=== PATIENT | male | born 1980 | race African-American/Black ===

== ENCOUNTER 2024-03-15 11:07 | Inpatient (IN) ==
[~2024-03-15 11:07] MED LIST: EPINEPHrine SYR 0.1MG/ML 10 ml SYRINGE IV ONE; Norepinephrine IV 1 MG/ML 4 ML VIAL ONE
[2024-03-15] MEDS: Norepinephrine 4 MG/250mL D5W 4,000 MCG/250 ML BAG IV SCH (11:07)
[2024-03-15] MEDS: HYDROmorphone 1 MG/1 ML SYRINGE IV ONE (11:35)
[2024-03-15] MEDS ORDERED: Propofol 10 mg/ml 100 ML BTL 1,000 MG/100 ML BTL ONE (11:45)
[2024-03-15 11:47] LABS: Hematocrit 39.8 % (33-39); Hemoglobin 12.1 g/dL (10.5-13.5); Mean Corpuscular Hemoglobin 30.4 pg (23-30); Mean Corpuscular Hgb Conc 30.4 g/dL (32-37); Mean Corpuscular Volume 100.1 fL (70-86); Mean Platelet Volume 6.9 fL (6.8-11.3); Platelet Count 310 10^3/uL (150-450); Red Blood Count 3.98 10^6/uL (3.70-5.30); Red Cell Distribution Width 12.7 % (12-17); White Blood Count 11.9 10^3/uL (6.0-17.0)
[2024-03-15] MEDS: Midazolam 10 mg/10 ml VIAL 1 mg/ml 10 ml VIAL (10 mg) IV SLOW PU ONE (12:02)
[2024-03-15 12:03] LABS: Resp Rate 20
[2024-03-15 12:04] LABS: Urine Appearance Extra Turbid; Urine Bilirubin Negative (Negative); Urine Blood 1+ (Negative); Urine Color Yellow; Urine Glucose Negative (Negative); Urine Ketones Negative (Negative); Urine Nitrite Negative (Negative); Urine Protein 2+ (>=100 mg/dL) (Negative); Urine Specific Gravity 1.031 (1.002-1.030); Urine Urobilinogen Negative (Negative)
[2024-03-15 12:05] LABS: High Sens Troponin Baseline 8 pg/mL (<20)
[2024-03-15 12:05] LABS: PO2 Arterial 160 mmHg (80-100)
[2024-03-15 12:09] LABS: ABS Eosinophils 0.1 10^3/uL (0.0-0.6); ABS Lymphocytes 7.3 10^3/uL (3.0-13.0); ABS Monocytes 0.9 10^3/uL (0.3-1.9); ABS Neutrophils 3.6 10^3/uL (1.0-8.0); ABS Nucleated RBC 0.02 10^3/ul; Eosinophil % 0.5 %; Lymphocyte % 61.2 %; Nucleated Red Blood Cells % 0.1 %/100WBC (0.0-0.8)
[2024-03-15 12:15] LABS: Urine Bacteria 3+ /HPF (Absent); Urine Red Blood Cell 3+(>10/hpf) /HPF (0-Trace); Urine Sperm Present /HPF (Absent); Urine White Blood Cell 3+(>20/hpf) /HPF (0-Trace)
[2024-03-15 12:16] LABS: PCO2 Arterial 81 mmHg (35-45)
[2024-03-15 12:24] LABS: ALT 41 U/L (7-52); AST 77 U/L (13-39); Albumin 3.4 g/dL (3.2-5.2); Albumin/Globulin Ratio 1.3 (1-3); Alkaline Phosphatase 67 U/L (122-469); Anion Gap 18 mmol/L (2-16); Blood Urea Nitrogen 22 mg/dL (6-24); CO2 Carbon Dioxide 23 mmol/L (23-33); Calcium 9.7 mg/dL (8.6-10.3); Chloride 99 mmol/L (101-111); Creatinine, Serum 1.05 mg/dL (0.67-1.17); Globulin 2.6 g/dL (2-4); Glucose 215 mg/dL (70-100); Magnesium 2.5 mg/dL (1.9-2.7); Potassium 4.4 mmol/L (3.5-5.0); Sodium 140 mmol/L (130-145); Total Bilirubin 0.2 mg/dL (0.2-1.0)
[2024-03-15 12:40] LABS: TSH Ultra Thyroid Stim Horm 5.82 mcIU/mL (0.34-5.60)
[2024-03-15] MEDS: Iodixanol 320 (CONTRAST) 100 ML SDV IV ONE (12:40)
[2024-03-15] MEDS: Propofol 10 mg/ml 100 ML BTL 1,000 MG/100 ML BTL IV SCH ×2 (12:50→17:15)
[2024-03-15 12:53] LABS: High Sensitivity Troponin 1 Hr 16 pg/mL (<20)
[2024-03-15] MEDS ORDERED: Propofol 10 mg/ml 100 ML BTL 1,000 MG/100 ML BTL IV SCH (13:00)
[2024-03-15] MEDS: Meperidine 50 mg/ml SYRINGE 1 ml IV PRN (14:09)
[2024-03-15 14:14] LABS: Alcohol, S < 13 mg/dL (<13); Creatine Kinase 1592 U/L (10-223)
[2024-03-15] MEDS: fentaNYL 100 mcg/2 ml 50 MCG/ML VIAL ONE (14:27)
[2024-03-15] MEDS: Meperidine 50 mg/ml SYRINGE 1 ml ONE (14:28)
[2024-03-15] MEDS: fentaNYL 100 mcg/2 ml 50 MCG/ML VIAL IV SLOW PU PRN (14:28)
[2024-03-15] MEDS: Lactated Ringers 1000 ml BAG 1,000 ML IV ONE ×2 (14:42→16:00)
[2024-03-15] MEDS: Enoxaparin 40 MG/0.4 ML SYR SUBCUT SCH (14:42)
[2024-03-15 14:50] LABS: Free T3 3.89 pg/mL (2.5-3.9)
[2024-03-15 14:51] LABS: Free T4 0.94 ng/dL (0.61-1.12)
[2024-03-15 15:07] LABS: Resp Rate 20
[2024-03-15 15:10] LABS: PO2 Arterial 106 mmHg (80-100)
[2024-03-15 15:12] LABS: PCO2 Arterial 78 mmHg (35-45)
[2024-03-15] MEDS ORDERED: NS 0.9% 1000 ml BAG 1,000 ML IV ONE (15:36)
[2024-03-15 15:52] LABS: Lipase 23 U/L (11.0-82.0)
[2024-03-15] MEDS: fentaNYL INFUSION 50 mcg/mL VL 2,500 MCG/50 ML VIAL IV SCH (15:52)
[2024-03-15] MEDS ORDERED: fentaNYL INFUSION 50 mcg/mL VL 2,500 MCG/50 ML VIAL IV SCH (16:00)
[2024-03-15 16:34] LABS: Activated Partial Thrombo Time 33.2 seconds (26.0-38.0); INR 1.12 (0.85-1.14)
[2024-03-15] MEDS: Chlorhexidine MOUTHWASH 0.12% 15 ML UDC TOPICAL SCH (16:39)
[2024-03-15 16:40] LABS: Urine Benzodiazepine Screen Presumptive Positive (None Detect); Urine Buprenorphine Screen None Detected (None Detect); Urine Cannabinoids Screen Presumptive Positive (None Detect); Urine Fentanyl Screen Presumptive Positive (None Detect); Urine Hydrocodone Screen Presumptive Positive (None Detect); Urine Opiates Screen Presumptive Positive (None Detect)
[2024-03-15 17:21] LABS: C Reactive Protein 7.52 mg/L (<8.01); Cholesterol 108 mg/dL; HDL Cholesterol 34.8 mg/dL; LDL Cholesterol 45 mg/dL; Triglycerides 142 mg/dL
[2024-03-15] MEDS: D5LR 1000 ml BAG 1,000 ML IV SCH (17:51)
[2024-03-15 18:00] LABS: Folate > 20.00 ng/mL (5.90-24.80)
[2024-03-15 18:01] LABS: Vitamin B12 725 pg/mL (180-914)
[2024-03-15] MEDS: Famotidine IV 10 MG/ML 2 ml VIAL (20 mg) IV SLOW PU SCH (22:01)
[2024-03-15] MEDS: Acetaminophen IV 1 GM/100ML 1,000 MG/100 ML BAG IV PRN (22:58)
[2024-03-16 04:31] LABS: Albumin 2.9 g/dL (3.2-5.2); Albumin/Globulin Ratio 1.3 (1-3); Calcium 8.1 mg/dL (8.6-10.3); Creatinine, Serum 1.45 mg/dL (0.67-1.17); Globulin 2.3 g/dL (2-4); Potassium 4.2 mmol/L (3.5-5.0); Total Bilirubin 0.4 mg/dL (0.2-1.0); Total Protein 5.2 g/dL (6.4-8.9)
[2024-03-16 04:37] LABS: Hematocrit 40.1 % (38-53); Hemoglobin 13.3 g/dL (13.2-16.3); Mean Corpuscular Hemoglobin 31.6 pg (27-33); Mean Corpuscular Hgb Conc 33.3 g/dL (31-36); Mean Corpuscular Volume 95.1 fL (80-97); Red Blood Count 4.22 10^6/uL (4.06-5.63); Red Cell Distribution Width 12.5 % (12-17)
[2024-03-16 05:18] LABS: ABS Lymphocytes 0.4 10^3/uL (1.0-4.8); ABS Monocytes 0.1 10^3/uL (0.0-1.1); ABS Neutrophils 7.5 10^3/uL (1.5-7.6); ABS Nucleated RBC 0.01 10^3/ul; Lymphocyte % 4.8 %; Mean Platelet Volume 6.8 fL (7.5-11.2); Nucleated Red Blood Cells % 0.1 %/100WBC (0.0-0.8); Platelet Count 291 10^3/uL (150-450); RBC Morphology Normal (Normal)
[2024-03-16 07:49] LABS: Resp Rate 24
[2024-03-16 07:52] LABS: PO2 Arterial 91 mmHg (80-100)
[2024-03-16 07:55] LABS: PCO2 Arterial 84 mmHg (35-45)
[2024-03-16] MEDS: Norepinephrine *QUAD STRENGTH* 16 mg/250 mL NS PREMIX (ICU ONLY) IV SCH (10:37)
[2024-03-16] MEDS ORDERED: Vasopressin 100 UNITS in D5W 250 ml BAG 245 ML IV SCH (13:45)
[2024-03-16] MEDS: VASOPRESSIN IVPREMIX BTL 40 UNIT/100 ML BTL IV SCH (14:18)
[2024-03-16 14:49] LABS: Resp Rate 24
[2024-03-16 14:50] LABS: PO2 Arterial 63 mmHg (80-100)
[2024-03-16 14:53] LABS: Venous Bicarbonate HCO3 19.6 mmol/L (24-28)
[2024-03-16 14:56] LABS: PCO2 Arterial > 100 mmHg (35-45)
[2024-03-16 15:28] LABS: Calcium 7.9 mg/dL (8.6-10.3); Creatinine, Serum 1.54 mg/dL (0.67-1.17); Potassium 5.9 mmol/L (3.5-5.0); eGFR CKD-EPI 64.2 (>60)
[2024-03-16] MEDS ORDERED: Sulfur Hexaflouride MICROSPHR 25 MG VIAL IV PRN (15:30)
[2024-03-16 16:05] LABS: Resp Rate 28
[2024-03-16 16:13] LABS: PO2 Arterial 62 mmHg (80-100)
[2024-03-16 16:18] LABS: PCO2 Arterial 93 mmHg (35-45)
[2024-03-16] MEDS: Dextrose 50% Syringe 50 ml 25 GM/50 ML SYRINGE IV PUSH PRN (16:58)
[2024-03-16] MEDS: Propofol 10 mg/ml 100 ML BTL 1,000 MG/100 ML BTL IV SCH ×2 (17:00→17:01)
[2024-03-16] MEDS: D5LR 1000 ml BAG 1,000 ML IV SCH (17:04)
[2024-03-16] MEDS: fentaNYL INFUSION 50 mcg/mL VL 2,500 MCG/50 ML VIAL IV SCH (17:05)
[2024-03-16] MEDS: Lactated Ringers 1000 ml BAG 1,000 ML IV ONE (17:27)
[2024-03-16] MEDS: SODIUM ZIRCONIUM CYCLOSILICATE 5 GM PACKET PO ONE (17:27)
[2024-03-16 17:31] LABS: Phosphorus 7.7 mg/dL (2.5-5.0)
[2024-03-16] MEDS: Dextrose 50% Syringe 50 ml 25 GM/50 ML SYRINGE IV PUSH ONE (18:32)
[2024-03-16 22:04] LABS: Calcium 7.9 mg/dL (8.6-10.3); Creatinine, Serum 1.77 mg/dL (0.67-1.17); Potassium 5.5 mmol/L (3.5-5.0); eGFR CKD-EPI 54.3 (>60)
[2024-03-17 05:28] LABS: PO2 Arterial 152 mmHg (80-100)
[2024-03-17 05:32] LABS: Hematocrit 43.3 % (38-53); Hemoglobin 14.7 g/dL (13.2-16.3); Mean Corpuscular Hemoglobin 31.9 pg (27-33); Mean Corpuscular Volume 93.8 fL (80-97); PCO2 Arterial 74 mmHg (35-45); Platelet Count 245 10^3/uL (150-450); Red Blood Count 4.61 10^6/uL (4.06-5.63); Red Cell Distribution Width 12.5 % (12-17); White Blood Count 4.7 10^3/uL (3.6-10.2)
[2024-03-17 06:39] LABS: Albumin 2.7 g/dL (3.2-5.2); Albumin/Globulin Ratio 1.1 (1-3); Calcium 7.3 mg/dL (8.6-10.3); Creatinine, Serum 1.75 mg/dL (0.67-1.17); Globulin 2.5 g/dL (2-4); Magnesium 1.8 mg/dL (1.9-2.7); Phosphorus 6.7 mg/dL (2.5-5.0); Potassium 6.4 mmol/L (3.5-5.0); Total Bilirubin 0.5 mg/dL (0.2-1.0); Total Protein 5.2 g/dL (6.4-8.9); eGFR CKD-EPI 55.1 (>60)
[2024-03-17] MEDS: Sodium Bicarb 8.4% Vial 50 ML 100 MEQ in D5W 1000 ml BAG 1,000 ML IV SCH (07:32)
[2024-03-17] MEDS: CALCIUM GLUCONATE 1GM/50ML NS 1 GM/50 ML BAG IV SCH (07:32)
[2024-03-17] MEDS: Dextrose 50% Syringe 50 ml 25 GM/50 ML SYRINGE IV PUSH ONE (07:32)
[2024-03-17] MEDS: Sodium Bicarbonate 8.4% SYR 50 ml SYRINGE IV ONE (07:32)
[2024-03-17] MEDS: SODIUM ZIRCONIUM CYCLOSILICATE 10 GM PACKET PO ONE (08:00)
[2024-03-17] MEDS: D5LR 1000 ml BAG 1,000 ML IV SCH (08:02)
[2024-03-17 08:41] LABS: ABS Lymphocytes 0.6 10^3/uL (1.0-4.8); ABS Monocytes 0.1 10^3/uL (0.0-1.1); ABS Nucleated RBC 0.01 10^3/ul; Eosinophil % 0.1 %; Lymphocyte % 13.4 %; Nucleated Red Blood Cells % 0.3 %/100WBC (0.0-0.8); RBC Morphology Normal (Normal)
[2024-03-17] MEDS: Magnesium Sulfate 2 gm BAG 2 GM/50 ML BAG IVPB ONE (10:23)
[2024-03-17 11:32] LABS: Calcium 7.3 mg/dL (8.6-10.3); Creatinine, Serum 1.76 mg/dL (0.67-1.17); Potassium 5.9 mmol/L (3.5-5.0); Uric Acid 5.1 mg/dL (4.4-7.6); eGFR CKD-EPI 54.7 (>60)
[2024-03-17 14:03] LABS: Urine Potassium Concentration 35.7 mmol/L
[2024-03-17 14:07] LABS: Magnesium 1.8 mg/dL (1.9-2.7)
[2024-03-17 14:09] LABS: Urine Appearance Turbid; Urine Bilirubin Negative (Negative); Urine Blood 1+ (Negative); Urine Color Light-Yellow; Urine Glucose Negative (Negative); Urine Ketones Negative (Negative); Urine Nitrite Negative (Negative); Urine Protein 1+ (>=30 mg/dL) (Negative); Urine Specific Gravity 1.011 (1.002-1.030); Urine Urobilinogen Negative (Negative); Urine pH 5.5 (5.0-8.0)
[2024-03-17 14:16] LABS: Urine Bacteria Absent /HPF (Absent); Urine Red Blood Cell 2+(6-10/hpf) /HPF (0-Trace); Urine Sperm Present /HPF (Absent); Urine White Blood Cell Trace(0-5/hpf) /HPF (0-Trace)
[2024-03-17 15:21] LABS: Calcium 7.3 mg/dL (8.6-10.3); Creatinine, Serum 1.85 mg/dL (0.67-1.17); Potassium 5.5 mmol/L (3.5-5.0); eGFR CKD-EPI 51.5 (>60)
[2024-03-17] MEDS: Thiamine 100 MG/ML 2 ml VIAL 500 MG in NS 0.9% 250 ml 250 ML IV ONE (16:45)
[2024-03-17] MEDS: Mannitol 25% (12.5 GM) 50 ML 12.5 GM/50 ML VIAL IV ONE (17:38)
[2024-03-17] MEDS: Acetaminophen IV 1 GM/100ML 1,000 MG/100 ML BAG IV PRN (23:42)
[2024-03-18 04:45] LABS: Hematocrit 38.7 % (38-53); Hemoglobin 12.8 g/dL (13.2-16.3); Mean Corpuscular Hemoglobin 31.2 pg (27-33); Mean Corpuscular Hgb Conc 33.1 g/dL (31-36); Mean Corpuscular Volume 94.1 fL (80-97); Mean Platelet Volume 7.4 fL (7.5-11.2); Platelet Count 184 10^3/uL (150-450); Red Blood Count 4.12 10^6/uL (4.06-5.63); Red Cell Distribution Width 12.7 % (12-17)
[2024-03-18 05:06] LABS: Albumin 2.3 g/dL (3.2-5.2); Calcium 7.4 mg/dL (8.6-10.3); Creatinine, Serum 2.33 mg/dL (0.67-1.17); Globulin 2.3 g/dL (2-4); Magnesium 2.2 mg/dL (1.9-2.7); Potassium 5.2 mmol/L (3.5-5.0); Total Bilirubin 0.5 mg/dL (0.2-1.0); Total Protein 4.6 g/dL (6.4-8.9); eGFR CKD-EPI 39.1 (>60)
[2024-03-18 06:10] LABS: ABS Lymphocytes 0.4 10^3/uL (1.0-4.8); ABS Monocytes 0.1 10^3/uL (0.0-1.1); ABS Neutrophils 4.6 10^3/uL (1.5-7.6); ABS Nucleated RBC 0.01 10^3/ul; Lymphocyte % 7.5 %; Nucleated Red Blood Cells % 0.3 %/100WBC (0.0-0.8); RBC Morphology Normal (Normal)
[2024-03-18] MEDS: D10W 500 ml BAG 500 ML IV SCH (10:03)
[2024-03-18] MEDS ORDERED: Zosyn per Pharmacy NOTE FOLLOW UP SCH (18:00)
[2024-03-18] MEDS: Piperacillin/Tazobac 3.375 BAG 3.375 GM/100 ML BAG IV ONE (18:51)
[2024-03-18] MEDS: ZOSYN 3.375 GM Q8H per EXTENDED INFUSION IV SCH (23:54)
[2024-03-19 06:44] LABS: Albumin 2.1 g/dL (3.2-5.2); Calcium 7.4 mg/dL (8.6-10.3); Creatinine, Serum 2.5 mg/dL (0.67-1.17); Globulin 2.2 g/dL (2-4); Magnesium 2.2 mg/dL (1.9-2.7); Phosphorus 5.3 mg/dL (2.5-5.0); Potassium 4.6 mmol/L (3.5-5.0); Total Bilirubin 0.8 mg/dL (0.2-1.0); Total Protein 4.3 g/dL (6.4-8.9); eGFR CKD-EPI 35.9 (>60)
[2024-03-19 07:18] LABS: ABS Lymphocytes 0.1 10^3/uL (1.0-4.8); ABS Monocytes 0.1 10^3/uL (0.0-1.1); ABS Neutrophils 1.5 10^3/uL (1.5-7.6); ABS Nucleated RBC 0.01 10^3/ul; Eosinophil % 0.2 %; Hematocrit 34.7 % (38-53); Hemoglobin 11.6 g/dL (13.2-16.3); Lymphocyte % 7.8 %; Mean Corpuscular Hemoglobin 31.4 pg (27-33); Mean Corpuscular Hgb Conc 33.4 g/dL (31-36); Mean Platelet Volume 7.4 fL (7.5-11.2); Nucleated Red Blood Cells % 0.3 %/100WBC (0.0-0.8); Platelet Count 94 10^3/uL (150-450); RBC Morphology Normal (Normal); Red Blood Count 3.69 10^6/uL (4.06-5.63); Red Cell Distribution Width 13.1 % (12-17); White Blood Count 1.7 10^3/uL (3.6-10.2)
[2024-03-19] MEDS: D10W 1000 ml BAG 1,000 ML IV SCH (08:24)
[2024-03-19] MEDS: Norepinephrine 4 MG/250mL D5W 4,000 MCG/250 ML BAG IV SCH (08:29)
[2024-03-19 11:28] LABS: PCO2 Arterial 49 mmHg (35-45); PO2 Arterial 145 mmHg (80-100)
[2024-03-19] MEDS: Polyethylene Glycol 3350 17 GM PACKET PO SCH (11:30)
[2024-03-19] MEDS: Artificial Tear OPHTH.OINT 3.5 GM BOTH EYES PRN (14:04)
[2024-03-19] MEDS: Docusate LIQ 100 MG/10 ML UDC PO SCH (21:19)
[2024-03-20 05:23] LABS: Albumin 2.1 g/dL (3.2-5.2); Albumin/Globulin Ratio 0.9 (1-3); Calcium 7.9 mg/dL (8.6-10.3); Creatinine, Serum 2.16 mg/dL (0.67-1.17); Globulin 2.3 g/dL (2-4); Magnesium 2.4 mg/dL (1.9-2.7); Potassium 4.2 mmol/L (3.5-5.0); Total Bilirubin 0.8 mg/dL (0.2-1.0); Total Protein 4.4 g/dL (6.4-8.9); eGFR CKD-EPI 37.8 (>60)
[2024-03-20 10:53] LABS: Hematocrit 32.7 % (38-53); Mean Corpuscular Hemoglobin 31.4 pg (27-33); Mean Corpuscular Hgb Conc 33.7 g/dL (31-36); Mean Corpuscular Volume 93.2 fL (80-97); Red Blood Count 3.51 10^6/uL (4.06-5.63); Red Cell Distribution Width 13.3 % (12-17); White Blood Count 13.1 10^3/uL (3.6-10.2)
[2024-03-20] MEDS: cefTRIAXone 1 gm/50 mL D5W 1 GM/50 ML BAG IV SCH (11:03)
[2024-03-20 11:26] LABS: ABS Lymphocytes 0.4 10^3/uL (1.0-4.8); ABS Monocytes 0.3 10^3/uL (0.0-1.1); ABS Neutrophils 12.3 10^3/uL (1.5-7.6); ABS Nucleated RBC 0.02 10^3/ul; Eosinophil % 0.1 %; Lymphocyte % 3.4 %; Mean Platelet Volume 8.6 fL (7.5-11.2); Nucleated Red Blood Cells % 0.1 %/100WBC (0.0-0.8); Platelet Count 82 10^3/uL (150-450)
[2024-03-21 07:38] LABS: Albumin 2.1 g/dL (3.2-5.2); Albumin/Globulin Ratio 0.8 (1-3); Calcium 8.2 mg/dL (8.6-10.3); Creatinine, Serum 2.25 mg/dL (0.67-1.17); Globulin 2.6 g/dL (2-4); Magnesium 2.4 mg/dL (1.9-2.7); Potassium 4.1 mmol/L (3.5-5.0); Total Bilirubin 0.7 mg/dL (0.2-1.0); Total Protein 4.7 g/dL (6.4-8.9); eGFR CKD-EPI 35.7 (>60)
[2024-03-21] MEDS: D5W 1000 ml BAG 1,000 ML IV SCH (12:07)
[2024-03-21] MEDS: fentaNYL INFUSION 50 mcg/mL VL 2,500 MCG/50 ML VIAL IV SCH (16:36)
[2024-03-21 18:58] VITALS: BP 152/88
== END 2024-03-21 18:05 | disposition expired | DRG 917 ==
LOC: ED 11:07 → EDHOLD 11:29 → EDBD 11:29 → ICU 11:35
PROVIDERS: ADMIT Internal Medicine Critical Care Medicine; ATTEND Internal Medicine Critical Care Medicine